=== PATIENT | male | born 1950 | race Caucasian/White ===

== ENCOUNTER 2019-11-06 10:08 | Day surgery (SDC) | payer BC, SELFPAY ==
[2019-11-03 09:59] VITALS: BMI 39.0
[2019-11-06 10:28] VITALS: BP 152/70; PULSE 56; RESP 18; TEMP 35.9; O2SAT 97
--- NOTE | 2019-11-06 10:42 | P.CONAN_ITS ---
[facility] Past Medical History Medical History CAD (coronary artery disease) Diabetes Diverticulosis GERD (gastroesophageal reflux disease) HTN (hypertension) Hx of skin ulcer Hyperlipidemia Hypotestosteronism Lumbar spondylolysis Osteoarthritis Peripheral vascular disease Right bundle branch block Sleep apnea Spinal stenosis Cognitive capacity: Alert and Oriented Functional capacity: independent ambulation Family History Family history of problems with anesthesia: No Surgical History Surgical History (Updated 11/03/19 @ 10:29 by Kate Gutierrez) History of angioplasty of peripheral vessel History of arthroplasty of right hip Hx of CABG S/P CABG x 4 History of Problems with Anesthesia: No Social History Social History Smoking Status: Former smoker Smoked in Last 30 Days: No Smoking Quit Date: 1979 Use of substances other than those prescribed or required for medical reasons: No Advance Directives: No Advance Directives Information Provided: Yes Advance Directives on File: No Travel History History of recent travel: No Recent Travel in [facility] Within the Last 8 Weeks: No Recent Out of Country Travel Within the Last 8 Weeks: No Exposure or Possible Exposure to Illness During Travel: No History of Being in a Healthcare Facility as a Patient, Worker, or Visitor during Travel: No Medical Treatment Received for Symptoms/Illness Related to Travel: No Meds Allergies Allergy/AdvReac Type Severity Reaction Status Date / Time No Known Allergies Allergy Verified 11/06/19 10:30 Home Medications Medication Instructions Recorded Confirmed Type acetaminophen 650 mg PO Q6H PRN 11/03/19 11/03/19 History aspirin 81 mg PO DAILY 11/03/19 11/06/19 History atorvastatin 80 mg PO BEDTIME 11/03/19 11/03/19 History clopidogrel 75 mg PO DAILY 11/03/19 11/06/19 History magnesium citrate mg 11/03/19 History metoprolol tartrate 100 mg PO BID 11/03/19 11/06/19 History nifedipine 30 mg PO DAILY 11/03/19 11/03/19 History sitagliptin [Januvia] 50 mg PO DAILY 11/03/19 11/03/19 History valsartan-hydrochlorothiazide 1 tab PO DAILY 11/03/19 11/06/19 History Exam Exam Date and Time: November 06, 2019 1042 Height,Weight and Vital Signs: Height 6 ft Weight 130.635 kg Last Vital Signs Temp 96.7 F L 11/06/19 10:28 Pulse 56 11/06/19 10:28 Resp 18 11/06/19 10:28 BP 152/70 H 11/06/19 10:28 Pulse Ox 97 11/06/19 10:28 Airway Mallampati Class: II TM Dist: >3cm Neck ROM: Full Loose/Missing/Broken Teeth: Yes (Missing a few) Heart: RRR Lungs: CTAB Assessment and Plan Assessment Anesthesia Assessment: Anesthesia Plan Discussed and Consent Obtained Final Anesthetic Review NPO: Yes (From midnight) Intake Type: Clears Intake Timing: Greater than 8 hours and Solids Intake Timing: Greater than 8 hours ASA Class: III Final Preanesthetic Review: No Changes in Pt Med Stat, Meds & Allergies Reviewed, Consent Obtained/Reviewed, Med/Surg/Anes Hx Reviewed and Anes Risks/Benef Reviewed Patient Risk: Intermediate Procedure Risk: Low Anesthetic Plan Anesthetic Plan: MAC: Disposition: Standard PACU
[2019-11-06] MEDS: ceFAZolin Sodium/Dextrose,Iso 2 GM/50 ML PIGGYBACK IV (11:11)
[2019-11-06 12:03] VITALS: BP 135/67; PULSE 56; RESP 16; TEMP 36.1; O2SAT 93
[2019-11-06 12:18] VITALS: BP 150/71; PULSE 56; RESP 16; O2SAT 94
[2019-11-06 12:33] VITALS: BP 138/76; PULSE 56; RESP 16; TEMP 36.1; O2SAT 94
--- NOTE | 2019-11-06 13:08 | HO.POSTANES ---
Post Anesthesia Evaluation Post Anesthesia Evaluation Vital Signs: Vital Signs Temp Pulse Resp BP Pulse Ox 11/06/19 12:33 97 F 56 16 138/76 94 11/06/19 12:18 56 16 150/71 H 94 11/06/19 12:03 97 F 56 16 135/67 93 11/06/19 10:28 96.7 F L 56 18 152/70 H 97 Anesthesia: Monitored Mental Status: Awake Pain Control: Satisfactory Nausea/Vomiting: None Hydration: Adequate Anesthesia-Related Issues: No Anes. Related Issues
--- NOTE | 2019-11-06 16:25 | OP_ITS ---
[facility] OPERATIVE REPORT PATIENT NAME: Jamar Fletcher ? DATE OF : 1950 LOCATION: [facility] DATE OF SERVICE: 11/06/2019 [facility] #: [id number] PCP: OPERATIVE REPORT Page 1 SURGEON: Maribell Boudreaux DPM PREOPERATIVE DIAGNOSES: 1. Chronic ulcer, right 2nd toe. 2. Osteomyelitis, right 2nd toe. 3. Hammertoe deformity, right 2nd toe. 4. Hammertoe deformity, right 3rd toe. 5. Hammertoe deformity, right 4th toe. POSTOPERATIVE DIAGNOSES: 1. Chronic ulcer, right 2nd toe. 2. Osteomyelitis, right 2nd toe. 3. Hammertoe deformity, right 2nd toe. 4. Hammertoe deformity, right 3rd toe. 5. Hammertoe deformity, right 4th toe. PROCEDURES PERFORMED: 1. Excision of chronic ulcer, right 2nd toe. 2. Bone biopsy, right 2nd toe. 3. Hammertoe deformity, right 2nd toe. 4 Hammertoe deformity, right 3rd toe. 5. Hammertoe deformity, right 4th toe. ESTIMATED BLOOD LOSS: 10 cc COMPLICATIONS: None. HEMOSTASIS: No tourniquet. ANESTHESIA: Monitored anesthetic care with local consisting of 2% lidocaine plain and 0.5% Marcaine plain. ASSISTANTS: Liana Wu DPM. SPECIMENS: Bone INDICATIONS FOR SURGERY: The patient had chronic ulcer noted to the distal tip of his right 2nd toe with osteomyelitis, hammertoe deformities of the right foot. The above-mentioned surgery was discussed in detail with the patient and his . No guarantees were given, and written and oral informed consents were obtained. PROCEDURE IN DETAIL: The patient was brought to the operating room, placed on the table in the supine position. Following IV sedation, the above-mentioned local anesthetic was injected about the right foot. The foot was then scrubbed, prepped, and draped in a sterile manner. Prior to the start of anesthesia, 2 g of cefazolin were administered to the patient. Attention was directed to the right foot where an ulcer was noted to the distal aspect of the right 2nd toe. The ulcer was excised in total and removed from the operative site and was sent for pathology. A bone biopsy was taken of the distal aspect of the distal phalanx of the right 2nd toe. The head of the proximal phalanx was also resected for a proximal margin and sent for pathology. The toe was then irrigated with copious amounts of normal sterile saline. All bone and soft tissue were noted to be healthy at this time. There was no remaining necrosis. The skin was reapproximated with 4-0 nylon in an interrupted suture technique. Attention was then directed to the plantar aspect of the 2nd toe where a stab incision was made at the level of the PIP joint, cutting the flexor tendon overlying the hammertoe to move into a rectus position. The wound was irrigated with sterile saline and the skin was reapproximated with 4-0 nylon in an interrupted suture technique. Attention was directed next to the 3rd toe at the plantar aspect of the PIP joint, where again a stab incision was made by cutting the flexor tendon, was irrigated with normal sterile saline and was reapproximated with 4-0 nylon. Attention was directed to the plantar aspect of the 4th toe where again a stab incision was made at the level of the PIP joint plantarly cutting the flexor tendon, and the wound was irrigated and the incision was reapproximated with 4-0 nylon in an interrupted suture technique. It should be noted that the patient did have adequate perfusion during the procedure. Hemostasis was performed with compression. The toes were then given a postoperative injection of 5 mL of 0.5% Marcaine plain. The toes were wrapped with Xeroform, Lisa, 4x4s, fluffs, cast padding, and an Marino bandage. The patient tolerated procedure and anesthesia well. The patient was transferred to the recovery room with vital signs stable and vascular status at preoperative levels. Following a period of postoperative recovery, the patient will be discharged home with written and oral postoperative instructions. The patient is to follow up in my office for all postoperative followup care and if any problems arise. Maribell Boudreaux DPM LP/CAROLANN / [id number] BEAR
--- NOTE | 2019-11-28 10:04 | MHC.SHP ---
Pre-Procedural Eval Section B Chief Complaint: hammer toe Allergies: Allergies Allergy/AdvReac Type Severity Reaction Status Date / Time No Known Allergies Allergy Verified 11/06/19 10:30 Plan Patient has been examined and remains a candidate for the planned procedure
== END 2019-11-06 13:58 | disposition home or self-care (01) ==
PROVIDERS: PCP Internal Medicine; Visit Provider Podiatrist
PROC: (CPT 28285; principal; 2019-11-06 11:10)
DX: M20.41 Other hammer toe(s) (acquired), right foot (principal); E11.621 Type 2 diabetes mellitus with foot ulcer; L97.519 Non-pressure chronic ulcer of other part of right foot with unspecified severity; E11.69 Type 2 diabetes mellitus with other specified complication; M86.9 Osteomyelitis, unspecified; E11.51 Type 2 diabetes mellitus with diabetic peripheral angiopathy without gangrene; I10 Essential (primary) hypertension; G47.33 Obstructive sleep apnea (adult) (pediatric); E78.5 Hyperlipidemia, unspecified; M19.90 Unspecified osteoarthritis, unspecified site; I25.10 Atherosclerotic heart disease of native coronary artery without angina pectoris; Z79.82 Long term (current) use of aspirin; Z79.84 Long term (current) use of oral hypoglycemic drugs; Z79.899 Other long term (current) drug therapy; Z87.891 Personal history of nicotine dependence
CPT/HCPCS: 28285 ×3; 20240; 11422; 88304; 88305; 88311; J0690; J1100; J2405; J3010